=== PATIENT | female | born 1990 | race Caucasian/White ===

== ENCOUNTER 2017-11-27 05:31 | Outpatient (CLI) | payer SELFPAY ==
[~2017-11-27] VITALS: Ht 149.9 cm; Wt 51.3 kg
[2017-11-27] MEDS ORDERED: bcp PO (09:01)
[2017-11-28] MEDS ORDERED: HYDR-34 PO (09:00)
[2017-11-28] MEDS ORDERED: IBUP-1773 PO (09:00)
[2017-11-28] MEDS ORDERED: LD5O35 TP (09:00)
== END 2017-11-27 09:05 ==
LOC: PREOP 05:31
PROVIDERS: ATTEND Obstetrics & Gynecology
DX: Z01.818 Encounter for other preprocedural examination (principal); N87.1 Moderate cervical dysplasia; N90.3 Dysplasia of vulva, unspecified

== ENCOUNTER 2017-11-28 06:20 | Day surgery (SDC) | payer OTHER ==
[~2017-11-28] VITALS: Ht 149.9 cm; Wt 51.3 kg
[~2017-11-28 06:20] MED LIST: bcp PO
[2017-11-28] MEDS ORDERED: MIDAZOLAM 2 MG/2 ML (VERSED) VIAL IVP ONE (06:45)
[2017-11-28] MEDS ORDERED: fentaNYL INJECTION 100 MCG/2 ML AMP ONE (07:11)
[2017-11-28] MEDS ORDERED: MIDAZOLAM 2 MG/2 ML (VERSED) VIAL ONE (07:12)
[2017-11-28] MEDS ORDERED: BUPIVACAINE 0.25% 30 ML (SENSORCAINE) VIAL ONE (07:34)
--- NOTE | 2017-11-28 07:39 | Progress Note-Pre Operative ---
Pre-Operative Progress Note H&P Reviewed The H&P was reviewed, patient examined and no changes noted. Date Seen by Provider: Nov 28, 2017 Time Seen by Provider: 07:30 Date H&P Reviewed: Nov 28, 2017 Time H&P Reviewed: 07:30 Pre-Operative Diagnosis: RAHEEL II, vulvar dysplasia MAX HERBERT DO Nov 28, 2017 07:39
[2017-11-28] MEDS: LACTATED RINGERS 1,000 ML IV PRN ×2 (07:47→08:43)
[2017-11-28] MEDS ORDERED: SEVOFLURANE (ULTANE) 15 ML INHAL SOLN ONE ×3 (07:53→08:27)
[2017-11-28] MEDS ORDERED: LIDOCAINE PF 2% 5 ML (XYLOCAINE) VIAL ONE (07:53)
[2017-11-28] MEDS ORDERED: LIDOCAINE JELLY 2% (XYLOCAINE) 5 ML TUBE ONE (07:53)
[2017-11-28] MEDS ORDERED: proPOfol 200 MG/20 ML (DIPRIVAN) VIAL IV ONE (07:53)
[2017-11-28] MEDS ORDERED: ONDANSETRON 4 MG/2 ML (SDV) Z0FRAN ONE (07:53)
[2017-11-28] MEDS ORDERED: BUP/EPI 0.5% 1:200,000 (SENSORCAINE) 30 ML VIAL ONE (08:03)
[2017-11-28 08:07] VITALS: BP 123/79
[2017-11-28] MEDS ORDERED: KETOROLAC 30 MG/ML VIAL ONE (08:41)
[2017-11-28] MEDS: KETOROLAC 30 MG/ML VIAL IVP NR ×2 (08:47→11:41)
--- NOTE | 2017-11-28 08:50 | Operative Report ---
Operative Report Date of Procedure/Surgery Nov 28, 2017 Surgeon (s) MAX HERBERT DO Linen Grader (s): NA Post-Operative Diagnosis RAHEEL II, Vulvar dysplasia Procedure Performed LEEP, WLE of vulvar lesion/partial vulvectomy Description of Procedure Anesthesia Type: General (via LMA) Estimated blood loss (mL): minimal Specimen(s) collected/removed LEEP cervical biopsy, Vulvar lesion Description of the Procedure With informed consent the patient was taken to the operating room where general anesthesia (LMA) was found to be adequate. She was prepped and draped in the usual sterile fashion [facility]. The bladder was drained of clear yellow urine A coated speculum was placed in the vagina and the cervix examined and grasped with a tenaculum. The cervix and vagina was stained with Lugols (colposcopy had previously been accomplished). I then injected the cervix in a cervical block fashion with 0.5 % Marcaine with epinephrine. I then used the small apple core to remove the lesion and the transition zone. I then cauterized the base with ball cautery. Once hemostasis was achieve, I removed the tenaculum. There was some bleeding that was controlled with a 3-0 Vicryl figure of eight stitch. I then turned attention to the vulva I demarcated the left labia lesion with a marking pen and then injected 0.5% Marcaine with epinephrine. In then made an elliptical incision excising the entire lesion. there was at least 2 mm on each edge except the medial which was more likely 1mm due to the proximity of the lesion to the inner labia. I then placed two deep sutures of 2-0 vicryl and then closed with 9 interrupted sutures of 3- Silk. The patient tolerated the procedure well and was awakened and taken to the recovery room in stable condition. Findings of the Procedure Lugol's negative lesion on the vulva mild dysplasia on the left labia, extensive. Allergies and Home Medications Allergies Coded Allergies: No Known Drug Allergies (Unverified , 11/27/17) Home Medications Hydrocodone Bit/Acetaminophen 1 Ea Tablet, 1 EA PO Q4H PRN for PAIN-MODERATE Prescribed by: MAX HERBERT on 11/28/17 0900 Ibuprofen 600 Mg Tablet, 600 MG PO Q6H PRN for PAIN Prescribed by: MAX HERBERT on 11/28/17 0900 Lidocaine HCl 35 Gm Oint, 35 GM TP 5XD PRN for pain Prescribed by: MAX HERBERT on 11/28/17 0900 [bcp] , 1 TAB PO DAILY, (Reported) Patient Home Medication List Home Medication List Reviewed: Yes MAX HERBERT DO Nov 28, 2017 08:49
[2017-11-28] MEDS ORDERED: BENZOCAINE/MENTHOL (DERMOPLAST) 56 ML CAN TP PRN (09:00)
[2017-11-28] MEDS ORDERED: morphine INJ 10 MG/ML 1ML (SYR OR VIAL) IVP PRN (09:00)
[2017-11-28] MEDS ORDERED: HYDROcodone/APAP 7.5 MG/325 MG (LORTAB, LORCET PLUS) TABLET PO PRN (09:00)
[2017-11-28] MEDS ORDERED: ONDANSETRON 4 MG/2 ML (SDV) Z0FRAN IVP PRN (09:00)
[2017-11-28] MEDS ORDERED: MEPERIDINE (DEMEROL) INJ 50 MG/ML IVP PRN (09:00)
[2017-11-28] MEDS ORDERED: IBUP-1773 PO (09:00)
[2017-11-28] MEDS ORDERED: HYDR-34 PO (09:00)
[2017-11-28] MEDS ORDERED: LD5O35 TP (09:00)
--- NOTE | 2017-11-28 09:01 | Discharge Inst-Women's Service ---
Discharge Inst-Women's Serv Depart Medication/Instructions New, Converted or Re-Newed RX: RX on Chart Instructions see written instructions Final Diagnosis RAHEEL II Vulvar dysplasia Activity Activity: Activity as Tolerated (see instructions) Driving Instructions: No Driving for 24 Hours NO SMOKING: NO SMOKING Nothing Inside Vagina: No Douching, No [place], No Tampons Diet Discharge Diet: No Restrictions Symptoms to Report to : Bleeding Excessive, Pain Increased, Fever Over 101 Degrees F, Vaginal Bleeding Increase, Vaginal Discharge Foul For Any Problems or Questions: Contact Your Physician Skin/Wound Care Infection Signs and Symptoms: Increased Redness, Foul Odor of Wound, Increased Drainage, Skin Itchy or Has a Rash, Increased Swelling, Temperature Above 101 F Operative Area Clean and Dry: Keep Incision Clean/Dry Stitches/Jessica/Dermabond: Care of Stitches Bathing Instructions: Shower (see instructions regarding bathing) MAX HERBERT DO Nov 28, 2017 09:01
[2017-11-28 09:40] VITALS: BP 125/83
[2017-11-28 10:10] VITALS: BP 109/72
[2017-11-28 10:40] VITALS: BP 104/67
[2017-11-28 11:10] VITALS: BP 104/67
--- NOTE | 2017-11-28 13:26 | Anesthesia-General Post-Op ---
General Patient Condition Mental Status/LOC: Same as Preop Cardiovascular: Satisfactory Nausea/Vomiting: Absent Respiratory: Satisfactory Pain: Controlled Complications: Absent Post Op Complications Complications None Follow Up Care/Instructions Patient Instructions None needed. Anesthesia/Patient Condition Patient Condition Patient was seen prior to discharge and was doing well, no complaints, stable vital signs, no apparent adverse anesthesia problems. AMARI OSBORN DO Nov 28, 2017 13:25
== END 2017-11-28 11:10 | disposition home or self-care (01) ==
LOC: SDC 06:20
PROVIDERS: ATTEND Obstetrics & Gynecology
DX: N87.1 Moderate cervical dysplasia (principal); N90.3 Dysplasia of vulva, unspecified
CPT/HCPCS: 84703; 87081; 88305; 88307; 94664

== ENCOUNTER 2017-12-08 09:09 | Emergency (ER) | payer OTHER ==
[~2017-12-08] VITALS: Ht 149.9 cm; Wt 51.3 kg
[~2017-12-08 09:09] MED LIST changes: +HYDR-34 PO; +IBUP-1773 PO; +LD5O35 TP
--- NOTE | 2017-12-08 09:55 | ED Integumentary General ---
General Chief Complaint: Skin/Wound Problems Stated Complaint: WOUND CHECK-STITCHES Allergies and Home Medications Allergies Coded Allergies: No Known Drug Allergies (Unverified , 11/27/17) Home Medications Hydrocodone Bit/Acetaminophen 1 Ea Tablet, 1 EA PO Q4H PRN for PAIN-MODERATE Prescribed by: MAX HERBERT on 11/28/17 0900 Ibuprofen 600 Mg Tablet, 600 MG PO Q6H PRN for PAIN Prescribed by: MAX HERBERT on 11/28/17 0900 Lidocaine HCl 35 Gm Oint, 35 GM TP 5XD PRN for pain Prescribed by: MAX HERBERT on 11/28/17 0900 [bcp] , 1 TAB PO DAILY, (Reported) Past Drihflx-Uvrgap-Yuklnb Hx Patient Social History Recent Foreign Travel: No Contact w/Someone Who Travel: No Recent Hopitalizations: No Immunizations Up To Date Tetanus Booster (TDap): Unknown Seasonal Allergies Seasonal Allergies: No Reproductive System Hx Reproductive Disorders: Yes (RAHEEL II, VULVAR DYSPLASIA) HEENT Loss of Vision: Denies Hearing Impairment: Denies Physical Exam Vital Signs Capillary Refill : Departure Impression Impression: Primary Impression: Encounter for postoperative wound check Disposition: HOME, SELF-CARE Condition: Stable Departure-Patient Inst. Referrals: MAX HERBERT DO Patient Instructions: How to Prevent Surgical Site Infections, Surgical Wound ( DC) Add. Discharge Instructions: CONTINUE ALL CURRENT SURGICAL POST OP INSTRUCTIONS FOLLOW UP WITH DR. HERBERT NEXT WEEK SCHEDULED OR SOONER IF WORSE All discharge instructions reviewed with patient and/or family. Voiced understanding. JOAO VILLAFUERTE DO Dec 08, 2017 09:55
[2017-12-08 10:16] VITALS: BP 122/78
== END 2017-12-08 10:16 | disposition home or self-care (01) ==
LOC: EDUNIT# 09:09 → ER 09:13
DX: T81.30XA Disruption of wound, unspecified, initial encounter (principal)
CPT/HCPCS: 99282